=== PATIENT | female | born 1970 | race Caucasian/White ===

== ENCOUNTER → 2017-02-10 | Outpatient (CLI) | payer OTHER | LOC: FIMAGING 11:16 | PROVIDERS: ATTEND Family Medicine | DX: Z12.31 Encounter for screening mammogram for malignant neoplasm of breast (principal) | CPT/HCPCS: G0202 ==

== ENCOUNTER → 2017-07-28 | Outpatient (CLI) | payer OTHER | LOC: FIMAGING 12:56 | PROVIDERS: ATTEND Family Medicine | DX: N63.10 Unspecified lump in the right breast, unspecified quadrant (principal) ==

== ENCOUNTER 2017-08-04 10:35 | Day surgery (SDC) | payer OTHER ==
--- NOTE | 2017-08-04 09:41 | PDHPUP ---
History & Physical Update H&P update statement: This history and physical update is based on an assessment of the patient which was completed after admission or registration (within 24 hours), but prior to the surgery/procedure. H&P update: H&P reviewed & patient examined, no change in patient's condition since H&P completed
[2017-08-04] MEDS ORDERED: ceFAZolin 2 GM/SWFI 2 GM/20 ML SYR IVP ONE (11:32)
[2017-08-04] MEDS ORDERED: LR 1,000 ML IV ONE (11:33)
[2017-08-04] MEDS ORDERED: LIDOCAINE 1% 2 ML INJ ID PRN (11:33)
[2017-08-04] MEDS ORDERED: BUPIVACAINE 0.5% 30 ML SDV ONE (11:38)
[2017-08-04 11:45] VITALS: RESP 16
[2017-08-04] MEDS ORDERED: fentaNYL 100 MCG/2 ML INJ ONE ×2 (12:13→13:27)
[2017-08-04] MEDS ORDERED: MIDAZOLAM 2 MG/2 ML VIAL ONE (12:13)
[2017-08-04] MEDS ORDERED: PROPOFOL/EMULSION 500 MG/50 ML BOTTLE IV ONE (12:13)
[2017-08-04] MEDS ORDERED: MIDAZOLAM 2 MG/2 ML VIAL IVP ONE (12:17)
--- NOTE | 2017-08-04 12:19 | PDANEPAE ---
ANE History of Present Illness 46 year old female for R breast excisional biopsy. ANE Past Medical History - Cardiovascular History Hx Hypertension: No Hx Arrhythmias: No Hx Chest Pain: No Hx Coronary Artery / Peripheral Vascular Disease: No Hx CHF / Valvular Disease: No Hx Palpitations: No - Pulmonary History Hx COPD: No Hx Asthma/Reactive Airway Disease: No Hx Recent Upper Respiratory Infection: No Hx Oxygen in Use at Home: No Hx Sleep Apnea: No Sleep Apnea Screening Result - Last Documented: Negative - Neurologic History Hx Cerebrovascular Accident: No Hx Seizures: No Hx Dementia: No - Endocrine History Hx Diabetes: No - Renal History Hx Renal Disorders: No - Liver History Hx Hepatic Disorders: No - Neurological & Psychiatric Hx Hx Neurological and Psychiatric Disorders: No - Cancer History Hx Cancer: Yes Cancer History Comment: ENDOMETRIAL CANCER - Congenital Disorder History Hx Congenital Disorders: No - GI History Hx Gastrointestinal Disorders: No - Other Health History Other Health History: NONE - Chronic Pain History Chronic Pain: No - Surgical History Prior Surgeries: 2012 HYSTERECTOMY. 2012 BILTAT OOPHORECTOMY ANE Review of Systems Review of systems is: negative Review of Systems: - Exercise capacity METS (RN): 4 METS ANE Patient History - Allergies Allergies/Adverse Reactions: No Known Allergies Allergy (Verified 08/03/17 16:33) - Home Medications Home Medications: Atorvastatin Calcium 08/04/17 [Last Taken 08/02/17] Calcium 08/04/17 [Last Taken 08/03/17] - NPO status NPO Since - Liquids (Date): 08/04/17 NPO Since - Liquids (Time): 07:00 NPO Since - Solids (Date): 08/03/17 NPO Since - Solids (Time): 19:00 - Smoking Hx Smoking Status: Never smoked - Family Anes Hx Family Hx Anesthesia Complications: NONE ANE Labs/Vital Signs - Vital Signs Blood Pressure: 123/75 Heart Rate: 80 Respiratory Rate: 16 O2 Sat (%): 97 Height: 157.48 cm Weight: 79.379 kg ANE Physical Exam - Airway Neck exam: FROM Mallampati Score: Class 2 Mouth exam: normal dental/mouth exam - Pulmonary Pulmonary: no respiratory distress - Cardiovascular Cardiovascular: regular rate and rhythym - ASA Status ASA Status: I ANE Anesthesia Plan Anesthesia Plan: MAC
[2017-08-04] MEDS ORDERED: LIDO/EPI 2%** Not for Epidural 20 ML MDV ONE (12:22)
[2017-08-04] MEDS ORDERED: LIDOCAINE 1% 300 MG/30 ML SDV ONE (12:26)
[2017-08-04] MEDS ORDERED: MEPERIDINE 25 MG/ML SYR IVP PRN (12:40)
[2017-08-04] MEDS ORDERED: ONDANSETRON 4 MG/2 ML VIAL IVP PRN (12:40)
[2017-08-04] MEDS ORDERED: HYDROCODONE/APAP 5/325 TAB PO PRN (12:40)
[2017-08-04] MEDS ORDERED: DEXAMETHASONE 4 MG/ML VIAL IVP PRN (12:40)
[2017-08-04] MEDS ORDERED: ACETAMINOPHEN 500 MG TAB PO PRN (12:40)
[2017-08-04] MEDS ORDERED: PROMETHAZINE HCL 25 MG/ML INJ IVP PRN (12:40)
[2017-08-04] MEDS ORDERED: HYDROmorphONE/DILAUDID 1 MG/ML INJ IVP PRN (12:40)
[2017-08-04] MEDS ORDERED: ALBUTEROL 3 ML DEYVIAL IH PRN (12:40)
[2017-08-04] MEDS ORDERED: LABETALOL HCL 5 MG/ML 20 ML MDV IVP PRN (12:40)
[2017-08-04] MEDS ORDERED: NALOXONE HCL 0.4 MG/ML INJ IVP PRN (12:40)
[2017-08-04] MEDS ORDERED: OXYCODONE/APAP 5/325 TAB PO PRN (12:40)
[2017-08-04] MEDS ORDERED: fentaNYL 100 MCG/2 ML INJ IVP PRN (12:40)
[2017-08-04] MEDS ORDERED: METOCLOPRAMIDE 10 MG/2 ML VIAL IVP PRN (12:40)
[2017-08-04] MEDS ORDERED: LR 500 ML IV PRN (12:40)
--- NOTE | 2017-08-04 12:58 | POSTOPPROG ---
Post Op Note Date of Operation: 08/04/17 Surgeon: Artemio Majano Anesthesiologist: Radha Anesthesia: IV Sedation Pre-op Diagnosis: R breast mass Post-op Diagnosis: Infected right brease sebaceous cyst Procedure: excisional breast biopsy, right Findings: infected sebaceous cyst, Cx and path taken Inf/Abcess present in the surg proc area at time of surgery?: Yes Depth: Deep Incisional (Fascial) EBL: Minimal Total fluids administered: 1000cc NS washout Specimen(s): cyst for path and culture
--- NOTE | 2017-08-04 13:04 | POSTANESTH ---
Post Anesthetic Evaluation Cardiovascular Status: Normal, Stable Respiratory Status: Normal, Stable Level of Consciousness/Mental Status: Can Participate in Eval Pain Control: Adequate, Prn Tx Ordered Nausea/Vomiting Control: Adequate, Prn Tx Ordered Complications Possibly Related to Anesthesia: None Noted
[2017-08-04] MEDS ORDERED: OXYCODONE/APAP 5/325 TAB ONE (13:27)
[2017-08-04 13:37] VITALS: BP 118/67; PULSE 68; TEMP 98.4
[2017-08-04 13:48] VITALS: O2SAT 96
--- NOTE | 2017-08-04 19:42 | GOP ---
[f rep st] OPERATIVE REPORT DATE OF OPERATION: 08/04/2017 SURGEON: Artemio Majano MD RETAIL BUSINESS ANALYST: None. ANESTHESIA: Local with MAC. ANESTHESIOLOGIST: Dr. Garcia. PREOPERATIVE DIAGNOSIS: Right breast mass. POSTOPERATIVE DIAGNOSIS: Infected right breast sebaceous cyst. PROCEDURE PERFORMED: Excisional right breast biopsy with cultures. FINDINGS: Cyst cavity encountered. Old sebaceous material completely removed. Cyst cavity irrigate d. Cultures taken. SPECIMENS: Sebaceous cyst, sent for culture and pathology. ESTIMATED BLOOD LOSS: 3 cc. DESCRIPTION OF PROCEDURE: The patient was greeted in the preoperative suite. Once again, risks, wilfredo efits and alternatives were discussed. Consent was signed. She was then brought back to the operati ve suite, placed on the OR table in supine position. After all anesthesia machines, including SCDs, were on and functioning, [employer] time-out was performed. After the patient was gen tly sedated, her right breast was prepped and draped in typical sterile fashion. I commenced the pro cedure by making a field block using 1% lidocaine. After successful field block I successfully made a 1.5 cm incision in the medial portion of the patient's breast over the area of greatest induration. I carried this down through the subcutaneous tissue where I encountered the cavity. Purulent sebac eous material was encountered. Cultures were taken. I then turned my attention toward removing the remainder of the cyst and cyst cavity, which was done sharply. After the cavity was completely remov ed, I irrigated the cavity with 1 L sterile saline noting clear effluent in the suction canister, aft er which hemostasis was achieved with gentle pressure. After the area was hemostatic, I then inserte d 0.5% Marcaine into the area for a longer-acting field block. I then closed the area with multiple interrupted 4-0 Monocryl, over which Steri-Strips, Mastisol and a sterile dressing were placed. The patient was then gently awoken and taken to the PACU in satisfactory condition. DRAINS: None. COUNTS: All counts were reported as correct x2. /[id number]/MODL
== END 2017-08-04 13:55 | disposition home or self-care (01) ==
LOC: FSGY 10:35
PROVIDERS: ATTEND Surgery
PROC: 0HBT0ZX Excision of Right Breast, Open Approach, Diagnostic (ICD-10-PCS; principal; 2017-08-04 12:15)
PROC: 0H9T0ZX Drainage of Right Breast, Open Approach, Diagnostic (ICD-10-PCS; principal; 2017-08-04 12:15)
DX: N60.81 Other benign mammary dysplasias of right breast (principal); E78.00 Pure hypercholesterolemia, unspecified; Z85.42 Personal history of malignant neoplasm of other parts of uterus; Z85.828 Personal history of other malignant neoplasm of skin
CPT/HCPCS: J0690; J2250; J2704; J3010

== ENCOUNTER → 2018-02-28 | Outpatient (CLI) | payer OTHER | LOC: FIMAGING 12:13 | PROVIDERS: ATTEND Family Medicine | DX: N63.20 Unspecified lump in the left breast, unspecified quadrant (principal); Z85.42 Personal history of malignant neoplasm of other parts of uterus ==

== ENCOUNTER → 2018-08-22 | Outpatient (CLI) | payer OTHER | LOC: BMCIMAGING 09:26 | PROVIDERS: ATTEND Family Medicine | DX: M85.89 Other specified disorders of bone density and structure, multiple sites (principal) ==

== ENCOUNTER → 2018-09-27 | Outpatient (CLI) | payer OTHER | LOC: FIMAGING 08:52 | PROVIDERS: ATTEND Family Medicine | DX: N63.22 Unspecified lump in the left breast, upper inner quadrant (principal); R92.8 Other abnormal and inconclusive findings on diagnostic imaging of breast ==